=== PATIENT | female | born 1970 | race Caucasian/White ===

== ENCOUNTER 2023-12-15 12:01 | Day surgery (SDC) | payer OTHER ==
[~2023-12-15] VITALS: Ht 152.4 cm; Wt 69.4 kg
[2023-12-15] MEDS ORDERED: MIDAZOLAM 5 MG/5 ML VIAL ONE (12:39)
[2023-12-15] MEDS ORDERED: fentaNYL citrate 0.05 MG/ML VIAL ONE (12:39)
[2023-12-15] MEDS ORDERED: LIDOCAINE 2% 100 MG/5 ML UJET TP ONE (12:40)
[2023-12-15] MEDS: fentaNYL citrate 0.05 MG/ML VIAL IVP ONE (12:50)
== END 2023-12-15 13:44 | disposition home or self-care (01) ==
LOC: MDS 12:01 → MMU 12:05 → MDS 13:44
PROVIDERS: ATTEND Internal Medicine Gastroenterology
DX: Z12.11 Encounter for screening for malignant neoplasm of colon (principal); K64.9 Unspecified hemorrhoids; I10 Essential (primary) hypertension; Z98.890 Other specified postprocedural states
CPT/HCPCS: 45378; J3010; J2250